=== PATIENT | female | born 1995 | race Caucasian/White ===

== ENCOUNTER 2017-04-06 18:34 | Emergency (ER) | payer SELFPAY ==
[~2017-04-06] VITALS: Ht 160 cm; Wt 59.0 kg
[2017-04-06 18:36] VITALS: Ht 160 cm; Wt 59.0 kg
[2017-04-06] MEDS ORDERED: PROPARACAINE 0.5% 15 ML OPH RIGHT EYE ONE (19:00)
[2017-04-06] MEDS ORDERED: FLUORESCEIN STRIP BOTH EYES ONE (19:00)
--- NOTE | 2017-04-06 19:14 | ERA ---
ER Documentation Chief Complaint Date/Time DATE: 04/06/17 TIME: 19:02 Chief Complaint right eye pain since HPI This is a 22-year-old female presenting one day status post right eye foreign body. Patient states that she was picking up something from the ground and a piece of glass or some other object must have gotten into her eye because of a feeling of something in there and it hurts. Patient is having trouble opening the eye. Patient denies eye pain, change in vision, photophobia, changes in hearing, fever, headache or difficulty breathing. ROS All systems reviewed and are negative except as per history of present illness. Medications Home Meds Active Scripts Gentamicin Sulfate* (Gentamicin Sulfate* Ophth) 0.3% - 5 Ml Drops, 1 DROP BOTH EYES Q4 for 14 Days, EA Prov:PAT BRAUN PA-C 04/06/17 Acetaminophen* (Tylenol*) 325 Mg Tablet, 1 TAB PO Q6 Y for PAIN AND OR ELEVATED TEMP, #20 TAB Prov:PAT BRAUN PA-C 04/06/17 Allergies Allergies: Uncoded Allergies: CATHLEEN MORILLO CHAPICK (Allergy, Intermediate, REDNESS AROUND MOUTH, 09/16/12) PMhx/Soc History of Surgery: No Anesthesia Reaction: No Hx Neurological Disorder: No Hx Respiratory Disorders: No Hx Cardiac Disorders: No Hx Psychiatric Problems: No Hx Miscellaneous Medical Probl: No Hx Alcohol Use: No Hx Substance Use: No Hx Tobacco Use: No Physical Exam Vitals Vital Signs Date Time Temp Pulse Resp B/P Pulse Ox O2 Delivery O2 Flow Rate FiO2 04/06/17 18:36 97.8 95 20 134/72 99 Physical Exam Const: Healthy-appearing. Well-nourished. Well-developed. No acute distress. Eyes: Right eye scleral injection. No foreign body grossly visualized. EOMI and MATTHEW bilaterally. Neur: Awake, alert and oriented x3. Neurovascularly intact bilaterally. Psych: Normal Mood and Affect. Head: Normocephalic, Atraumatic. Ears: Normal External Ears, EACs clear, TM normal bilaterally without erythema. Nose: Normal nose without discharge, septal deviation, or sinus tenderness. Oral: No oral edema visualized. Mucous membranes moist and pink. Neck: No cervical lymphadenopathy, masses or goiter palpated. Trachea midline. Supple ~ No meningismus. Pulm: Good air movement in upper and lower respiratory tracts. No dyspnea, stridor, tripoding or drooling. Clear to auscultation bilaterally. Cardio: Regular rate and rhythm; No murmurs, gallops or rubs auscultated. No JVD grossly observed. Radial and posterior tibial pulses 2+ bilaterally. No cyanosis. Capillary refill less than 2 seconds. Abd: Soft, non tender, non distended. No guarding, masses. Normal bowel sounds. No McBurney's point tenderness. MS: Normal motor strength, normal tone with gross examination. Skin: No petechiae or rashes. No ulcer, induration, jaundice. Good turgor. Back: No midline, flank or CVA tenderness. Ext: No cyanosis, edema or palpable cord. Normal movement of all extremities grossly observed. Results 24 hrs Current Medications Medications (Trade) Dose Ordered Sig/Ailyn Route PRN Reason Start Time Stop Time Status Last Admin Dose Admin Proparacaine HCl (Alcaine 0.5%) 1 drop ONCE ONCE RIGHT EYE 04/06/17 19:00 04/06/17 19:01 DC Fluorescein Sodium (Mpwuy-A-Tbgiv) 1 strip ONCE ONCE BOTH EYES 04/06/17 19:00 04/06/17 19:01 DC Procedures/MDM This is a 21-year-old female presenting with a chief complaint of foreign body into the right eye. Patient is taking lubricating drops without relief. Patient is being worked up and evaluated for a pruritic, non-painful, acute red right eye as described in the history and physical exam. My current differential includes, but is not limited to, the following: trauma, acute glaucoma, uveitis, conjunctivitis, hemorrhage, etc. ED treatment included 2 drops of proparacaine with relief of symptoms. Visual acuity was measured prior to the treatment and procedures. Two drops of proparacaine were used in both eyes. A fluorescein eye stain was then applied using a strip along the lower eyelid of the affected eye and the results were corneal abrasion visualized in the upper right quadrant of the cornea. A slit lamp was then used for further evaluation and was unremarkable without visualization of foreign bodies. The current most likely diagnosis is corneal abrasion with possible retained foreign body. Visual acuity was measured after the procedure and remained unchanged. At this time I have very little suspicion for acute glaucoma, corneal ulcer, keratitis, uveitis, or hemorrhage. I have spoke with the patient regarding their condition and future management. They have verbally responded that they understand their status and treatment plan. The patients vitals are stable, and their current condition is appropriate for discharge. The patient will be given discharge instructions with return precautions. Discharge medications: Acetaminophen 325 mg p.o. for pain, gentamicin ophthalmology solution GTT 14 days. Referral list for ophthalmology has been handed to the patient. Departure Diagnosis: Primary Impression: Corneal abrasion Qualified Code: S05.01XA - Corneal abrasion, right, initial encounter Additional Impression: Corneal foreign body Qualified Code: T15.01XA - Corneal foreign body, right, initial encounter Condition: Stable Additional Instructions: Follow up with your PCP with ophthalmology in 1-3 days. Return the the emergency department immediately if symptoms worsen or change. If you have any questions regarding medications, ask your pharmacist or us before you leave. If any adverse reactions occur while taking your medications, discontinue the treatment and return to the emergency department immediately. Take your medications as directed, and complete the entire course of treatment. PAT BRAUN PA-C Apr 06, 2017 19:12
[2017-04-06] MEDS ORDERED: ACET325T33 PO (20:00)
[2017-04-06] MEDS ORDERED: GENT5DRO28 BOTH EYES (20:01)
== END 2017-04-06 20:21 | disposition home or self-care (01) ==
LOC: FTE 18:34
DX: S05.01XA Injury of conjunctiva and corneal abrasion without foreign body, right eye, initial encounter (principal); X58.XXXA Exposure to other specified factors, initial encounter; Y92.9 Unspecified place or not applicable
CPT/HCPCS: 99283